=== PATIENT | female | born 1960 ===

== ENCOUNTER 2020-01-28 09:30 | Outpatient (CLI) | payer OTHER, SELFPAY ==
--- NOTE | 2020-01-28 08:30 | DI.RAD_ITS ---
EXAM: XR SHOULDER RT COMPLETE 2+V CLINICAL HISTORY: fu fracture. TECHNIQUE: 2D digital imaging was performed. COMPARISON: No previous for comparison. FINDINGS: BONES: There is a lucency through the acromion on the axillary view. This may be secondary to overly ing soft tissue shadows. Fracture cannot be excluded. Please correlate clinically. No bony destruc tive lesion is seen. JOINTS: No dislocation present. SOFT TISSUE: Normal. IMPRESSION: Lucent area overlying the acromion on the axillary view. Soft tissue artifact versus fracture. Plea se correlate clinically. DATA REPOSITORY: RADIATION DOSE DELIVERED:
--- NOTE | 2020-01-28 08:30 | DI.RAD_ITS ---
EXAM: XR ELBOW RT COMPLETE CLINICAL HISTORY: fu fracture. TECHNIQUE: 2D digital imaging was performed. COMPARISON: No exams were available for comparison FINDINGS: BONES: There is an acute mildly impacted fracture at the junction of the radial head and neck anterio r laterally. No bony destructive lesion is seen. JOINTS: The elbow is normally aligned. A joint effusion is present. SOFT TISSUE: Normal. IMPRESSION: Mildly impacted fracture at the junction of the radial head and neck. Joint effusion. DATA REPOSITORY: RADIATION DOSE DELIVERED:
== END 2020-01-28 09:50 ==
PROVIDERS: PCP Naturopath; Referring Provider Naturopath; Visit Provider Student in an Organized Health Care Education/Training Program
DX: S52.121A Displaced fracture of head of right radius, initial encounter for closed fracture (principal); S52.131A Displaced fracture of neck of right radius, initial encounter for closed fracture; M25.421 Effusion, right elbow; S42.121A Displaced fracture of acromial process, right shoulder, initial encounter for closed fracture
CPT/HCPCS: 73030; 73080